=== PATIENT | female | born 1960 | race Caucasian/White ===

== ENCOUNTER 2018-09-02 17:50 | Emergency (ER) | payer OTHER ==
[2018-09-02] MEDS: LORAZEPAM 1 MG TAB PO (18:19)
[2018-09-02] MEDS: KETOROLAC 30 MG INJ IM (18:20)
== END 2018-09-02 18:59 | disposition home or self-care (01) ==
LOC: E/R 17:50
DX: M79.7 Fibromyalgia (principal); F32.9 Major depressive disorder, single episode, unspecified; Z87.891 Personal history of nicotine dependence
CPT/HCPCS: 96372; 99284-25